=== PATIENT | female | born 1970 | race Caucasian/White ===

== ENCOUNTER → 2017-01-18 16:49 | Outpatient (CLI) | payer OTHER | END | disposition home or self-care (01) | LOC: D.MAMMO 15:45 | DX: Z12.31 Encounter for screening mammogram for malignant neoplasm of breast (principal) ==

== ENCOUNTER → 2017-01-26 18:26 | Outpatient (CLI) | payer OTHER | END | disposition home or self-care (01) | LOC: D.MAMMO 12:00 | DX: R92.8 Other abnormal and inconclusive findings on diagnostic imaging of breast (principal) ==

== ENCOUNTER 2017-08-27 18:00 | Outpatient (CLI) | payer OTHER | END 2017-08-27 23:59 | disposition home or self-care (01) | LOC: D.MAMMO 18:00 | DX: R92.8 Other abnormal and inconclusive findings on diagnostic imaging of breast (principal) ==